=== PATIENT | male | born 1995 | race Caucasian/White ===

== ENCOUNTER 2016-10-30 22:06 | Emergency (ER) | payer SELFPAY ==
[~2016-10-30] VITALS: Ht 177.8 cm; Wt 70.0 kg
[2016-10-30 22:16] VITALS: BP 114/62
== END 2016-10-31 06:19 | disposition left against medical advice (07) ==
LOC: ER 22:08
DX: Z53.21 Procedure and treatment not carried out due to patient leaving prior to being seen by health care provider (principal)